=== PATIENT | male | born 1985 | race Caucasian/White ===

== ENCOUNTER 2017-05-27 10:24 | Observation (INO) | payer OTHER ==
--- NOTE | 2017-05-27 11:06 | EDPHY ---
H & P Stated Complaint: sent from [facility] with LtUpper Arm DVT Time Seen by Provider: 05/27/17 11:03 HPI/ROS: Chief complaint: Deep vein thrombosis left upper extremity History of present illness: This 31-year-old male with past medical history of borderline hypertension presents to emergency department today after having an ultrasound of his left upper extremity ordered by [facility] urgent care this morning. The patient has been having swelling and discomfort in his left upper extremity for the last week. Apparently the ultrasound showed a DVT and the urgent care advised him to go to the ER for further evaluation and treatment. The patient denies having injury to this extremity, he has not had any prior issues with blood clots. He denies chest pain, shortness of breath, fever or any other concerns. 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 He is right handed. He does not smoke. Upon review of family history he states his Aunt had a DVT and later in the ER stay after talking to family members he states his Aunt has Factor 5 Leiden deficiency. His mother had lung cancer as well as a pulmonary embolism, and his father had lung cancer. REVIEW OF SYSTEMS: Constitutional: No fever, no chills. Eyes: No discharge. ENT: No sore throat. Respiratory: No cough, no shortness of breath. Cardiac: No chest pain, no palpitations. Gastrointestinal: No abdominal pain, no vomiting. Genitourinary: No hematuria. Musculoskeletal: No back pain. Skin: No rashes. Neurological: No headache. Source: Patient Exam Limitations: No limitations - Personal History Current Tetanus Diphtheria and Acellular Pertussis (TDAP): Yes - Medical/Surgical History PMH: PMH: Borderline HTN PSH: Denied NKDA Meds: Denied No PCP. Has an appointment scheduled with a new provider, Dr. Narayan Ramires, tomorrow morning. 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 Constitutional: Initial Vital Signs Temperature (C) 98 F 05/27/17 10:57 Heart Rate 95 05/27/17 10:57 Respiratory Rate 18 05/27/17 10:57 Blood Pressure 157/112 H 05/27/17 10:57 O2 Sat (%) 97 05/27/17 10:57 O2 Delivery Mode Room Air Allergies/Adverse Reactions: No Known Allergies Allergy (Unverified 05/27/17 13:26) Home Medications: Medication Instructions Recorded NK [No Known Home Meds] 05/27/17 Medical Decision Making - Diagnostics Imaging Results: Imaging Impressions Chest/Thorax CTA 05/27/17 11:38 Impression: 1. Bilateral segmental and subsegmental pulmonary emboli. 2. Limited assessment of known left upper extremity DVT secondary to contrast injection via the right arm. 3. Narrowing of the central right subclavian vein. 4. Additional findings as above. Findings discussed with Marie Morris DO, 05/27/2017 at 13:14. Imaging: Discussed imaging studies w/ call centre supervisor Radiologist ED Course/Re-evaluation: The patient was seen and examined. Vital signs reviewed. I was able to contact [employer] in [facility] get a copy of the reading of the upper extremity venous duplex of the left upper extremity. This showed a left upper extremity thrombus in the left subclavian vein extending into the axillary vein. I attempted to contact the provider he is going to see tomorrow but he is not in the office today and did not answer pages. I discussed the patient with the hospitalist service, Sugey Shields NP, at [facility]. I have ordered the hypercoagulable lab panel and ordered a CT pulmonary angiogram. The CT pulmonary angiogram came back positive for segmental and subsegmental PEs bilaterally. The patient received Lovenox 1 milligram/kilogram subcutaneously. The patient was uncomfortable being discharged as was the original plan, and therefore was admitted to Med-Surg telemetry, observation at [facility]. Differential Diagnosis: Differential diagnosis includes but is not limited to pulmonary embolism, factor 5 Leiden deficiency, protein C protein or S deficiency, cancer (in addition to the known deep vein thrombosis of his left upper extremity). - Data Points Laboratory Results: Laboratory Results 05/27/17 11:45 05/27/17 11:45 05/27/17 05/27/17 05/27/17 12:00 12:00 11:45 WBC RBC Hgb Hct MCV MCH MCHC RDW Plt Count MPV Neut % (Auto) Lymph % (Auto) [place] % (Auto) Eos % (Auto) Baso % (Auto) Nucleat RBC Rel Count Absolute Neuts (auto) Absolute Lymphs (auto) Absolute Monos (auto) Absolute Eos (auto) Absolute Basos (auto) Absolute Nucleated RBC Immature Gran % Immature Gran # PT 13.9 SEC SEC (12.0-15.0) INR 1.08 (0.83-1.16) APTT 30.3 SEC SEC (23.0-38.0) Fibrinogen 280 mg/dL mg/dL (214-456) D-Dimer 10.47 ug/mLFEU H ug/mLFEU (0.00-0.50) Protein C Activity Pending Protein S Activity Pending Antithrombin III Activ Pending Factor V Leiden Mutat Pending Factor V Leiden Interp Pending Fact V Leiden Review By Pending Sodium 146 mEq/L H mEq/L (135-145) Potassium 4.2 mEq/L mEq/L (3.5-5.2) Chloride 104 mEq/L mEq/L (97-110) Carbon Dioxide 26 mEq/l mEq/l (22-31) Anion Gap 16 mEq/L mEq/L (8-16) BUN 15 mg/dL mg/dL (7-23) Creatinine 0.9 mg/dL mg/dL (0.7-1.3) Estimated GFR > 60 Glucose 91 mg/dL mg/dL (70-100) Calcium 10.1 mg/dL mg/dL (8.5-10.4) Total Bilirubin 0.6 mg/dL mg/dL (0.1-1.4) Conjugated Bilirubin 0.2 mg/dL mg/dL (0.0-0.5) Unconjugated Bilirubin 0.4 mg/dL mg/dL (0.0-1.1) AST 31 IU/L IU/L (17-59) ALT 47 IU/L IU/L (21-72) Alkaline Phosphatase 60 IU/L IU/L (38-126) Total Protein 8.0 g/dL g/dL (6.3-8.2) Albumin 4.7 g/dL g/dL (3.5-5.0) Anti-Cardiolipin IgG Ab Pending Anti-Cardiolipin IgM Ab Pending 05/27/17 11:45 WBC 5.94 10^3/uL 10^3/uL (3.80-9.50) RBC 5.49 10^6/uL 10^6/uL (4.40-6.38) Hgb 16.4 g/dL g/dL (13.7-17.5) Hct 46.9 % % (40.0-51.0) MCV 85.4 fL fL (81.5-99.8) MCH 29.9 pg pg (27.9-34.1) MCHC 35.0 g/dL g/dL (32.4-36.7) RDW 12.1 % % (11.5-15.2) Plt Count 186 10^3/uL 10^3/uL (150-400) MPV 9.2 fL fL (8.7-11.7) Neut % (Auto) 74.8 % H % (39.3-74.2) Lymph % (Auto) 17.7 % % (15.0-45.0) [place] % (Auto) 6.7 % % (4.5-13.0) Eos % (Auto) 0.2 % L % (0.6-7.6) Baso % (Auto) 0.3 % % (0.3-1.7) Nucleat RBC Rel Count 0.0 % % (0.0-0.2) Absolute Neuts (auto) 4.44 10^3/uL 10^3/uL (1.70-6.50) Absolute Lymphs (auto) 1.05 10^3/uL 10^3/uL (1.00-3.00) Absolute Monos (auto) 0.40 10^3/uL 10^3/uL (0.30-0.80) Absolute Eos (auto) 0.01 10^3/uL L 10^3/uL (0.03-0.40) Absolute Basos (auto) 0.02 10^3/uL 10^3/uL (0.02-0.10) Absolute Nucleated RBC 0.00 10^3/uL 10^3/uL (0-0.01) Immature Gran % 0.3 % % (0.0-1.1) Immature Gran # 0.02 10^3/uL 10^3/uL (0.00-0.10) PT INR APTT Fibrinogen D-Dimer Protein C Activity Protein S Activity Antithrombin III Activ Factor V Leiden Mutat Factor V Leiden Interp Fact V Leiden Review By Sodium Potassium Chloride Carbon Dioxide Anion Gap BUN Creatinine Estimated GFR Glucose Calcium Total Bilirubin Conjugated Bilirubin Unconjugated Bilirubin AST ALT Alkaline Phosphatase Total Protein Albumin Anti-Cardiolipin IgG Ab Anti-Cardiolipin IgM Ab Medications Given: Discontinued Medications Enoxaparin Sodium (Lovenox) 100 mg SC EDNOW ONE Stop: 05/27/17 13:21 Last Admin: 05/27/17 13:47 Dose: 100 mg Departure - Departure Disposition: Home, Routine, Self-Care
[2017-05-27 11:51] LABS: PLATELET COUNT 186 10^3/uL (150-400)
[2017-05-27] MEDS ORDERED: IOPAMIDOL (ISOVUE 370) 100 ML BTL IV ONE (11:55)
[2017-05-27 12:11] LABS: INR 1.08 (0.83-1.16); PROTIME(PATIENT) 13.9 SEC (12.0-15.0)
[2017-05-27] MEDS ORDERED: ENOXAPARIN 100 MG/ML SYR SC ONE (13:20)
[2017-05-27] MEDS ORDERED: ONDANSETRON 4 MG/2 ML VIAL IVP PRN (14:44)
[2017-05-27] MEDS ORDERED: ONDANSETRON DISINTEGRATING 4 MG TAB PO PRN (14:44)
[2017-05-27] MEDS ORDERED: ACETAMINOPHEN 325 MG TAB PO PRN (14:44)
[2017-05-27 15:31] VITALS: RESP 16; TEMP 98.6
[2017-05-27 16:04] VITALS: BP 148/97; PULSE 88; O2SAT 91
--- NOTE | 2017-05-27 18:03 | GHP ---
[f rep st] HISTORY AND PHYSICAL DATE OF ADMISSION: 05/27/2017 CHIEF COMPLAINT: Left upper extremity swelling. 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 Malaika ent describes a waxing and waning swelling that involved his hand, then his forearm, and ultimately h is upper arm. When the swelling remained persistent today, patient sought care for evaluation, was n oted to have a DVT, and was sent to the acute care clinic for evaluation. In the acute care clinic, they obtained CT chest imaging which confirmed bilateral subsegmental pulmonary emboli. Upon our anyi luation, patient denies any chest pain or history of preceding pleuritic chest pain. Patient denies any shortness of breath or any limitation to activity related to his breathing or his chest. Patient endorses now improving left upper extremity edema. Denies any numbness, tingling or pain in that ex tremity. Denies any lower extremity swelling preceding his presentation. Patient denies any GI symp toms. Denies any dysuria, hematuria, vision changes, headaches, or dysphagia. PAST MEDICAL HISTORY: None. SOCIAL HISTORY: Negative for tobacco. Daily alcohol. No illicit drugs or marijuana. FAMILY HISTORY: Patient reports discussing what was happening with his family today and learning dada t he has an aunt on his maternal side with factor V Leiden and that a grandma on his father's side morel d a pulmonary embolism. REVIEW OF SYSTEMS: A 10-point review of systems is negative with the exception of that reported in t he HPI. PHYSICAL EXAMINATION: VITAL SIGNS: Blood pressure 148/98, heart rate 88, respiratory rate 16, satur ating 96% on room air, 37.0. GENERAL: This is a healthy-appearing young male in no acute distress. HEENT: Notable for moist mucous membranes. Eye exam is negative for any icterus. CARDIAC: Makenna t is regular rate and rhythm. No murmurs, gallops, or rubs. PULMONARY: Patient has good respirator y effort, is clear to auscultation bilaterally. GASTROINTESTINAL: Positive bowel sounds. ABDOMEN: Soft and nontender in all 4 quadrants. MUSCULOSKELETAL: Negative for any lower extremity edema. Th e left upper extremity has trace edema. No pitting is appreciated. Pulses are normal. Sensation is intact, and color is normal. SKIN: Negative for any rashes. PSYCHIATRIC: Patient is pleasant and cooperative on interview and examination. DATA: White count 5.9. D-dimer 10.4. Sodium 146. Creatinine 0.9. CTA of the chest, which I tasia beavers reviewed and interpreted, shows bilateral subsegmental pulmonary emboli. ASSESSMENT AND PLAN: This is a 31-year-old male presenting with left upper extremity swelling. 1. Acute subsegmental pulmonary emboli: Suspect based on the patient's newly found family history, patient may have an underlying genetic predisposition for clotting. After extended discussion about anticoagulation, patient has opted to initiate a novel anticoagulant. He was treated with full-dose Lovenox by the emergency department. We have provided a script for 1 month of Eliquis including a 10 dollar co-pay card. He has been instructed to discuss the [facility] of novel [facility] and his primary care prior to the cessation of that script, so that if he needs to switch to Couma din for financial reasons, it can be done so safely before he runs out of the medication. We have ad ditionally recommended that the patient seek hematology oncology consultation in the next 1-2 months after the acute clotting incident so he can have the appropriate workup for any underlying hypercoagu lable state. 2. Prophylaxis: Patient is on full-dose anticoagulation. 3. Diet: Regular. 4. Disposition: This evening as the patient is stable and comfortable returning home. /[id number]/MODL
--- NOTE | 2017-05-27 22:59 | GDS ---
[f rep st] DISCHARGE SUMMARY DISCHARGE DIAGNOSES: Include: 1. Acute bilateral pulmonary emboli. 2. Acute left upper extremity deep vein thrombosis. 3. Suspected hypercoagulable state. HISTORY OF PRESENT ILLNESS: This is a 31-year-old male, with no known history of hypercoagulability, who presents with acute left upper extremity swelling. For details of the patient's initial present ation, please see the history and physical dated 05/27/2017. PROCEDURES: On May 27, patient had a CTA of the chest that confirms bilateral subsegmental pulmo nary emboli. HOSPITAL COURSE: Acute pulmonary emboli. Patient's PESI score is 43. He was treated with Lovenox f rom the acute care clinic. After discussion with the patient, he has opted for a novel anticoagulant . Patient has been provided with a script as well as a 10 dollar co-pay card for Eliquis, with the r ecommendations to follow with his PCP in the next 1-2 weeks for discussion about ongoing anticoagulat ion and coordination with his insurance provider, as well as consultation with outpatient Hematology Oncology to discuss the likely hypercoagulable state as he has family members with known factor V Lei den. Patient's vital signs are entirely normal. He is without symptoms of shortness of breath or ch est pain and is stable and safe for discharge home. MEDICATIONS AT THE TIME OF DISPOSITION: Please reference med rec printed on 05/27/2017. FOLLOWUP APPOINTMENTS: Include with his PCP as well as Hematology Oncology. PENDING STUDIES: At the time of this dictation include hypercoagulable laboratories ordered by the [facility]. These can be followed in the outpatient setting by Hematology Oncology when they evaluate him in 1-2 months. /[id number]/MODL
== END 2017-05-27 18:20 | disposition home or self-care (01) ==
LOC: CED 10:24 → CEDHOLD 13:17 → F3E 15:04
PROVIDERS: ADMIT Hospitalist; ATTEND Hospitalist
DX: I26.99 Other pulmonary embolism without acute cor pulmonale (principal); I82.622 Acute embolism and thrombosis of deep veins of left upper extremity; I10 Essential (primary) hypertension; Z80.1 Family history of malignant neoplasm of trachea, bronchus and lung
CPT/HCPCS: 71275; G0378; 80048-PO; 80076-PO; 85025-PO; 85300-90; 85303-90; 85306-90; 85378-PO; 85610-PO; 85730-PO; 86147-90; J1650; Q9967

== ENCOUNTER 2018-05-30 22:04 | Emergency (ER) | payer OTHER ==
[2018-05-30] MEDS ORDERED: ASPIRIN 81 MG CHEWABLE TAB PO ONE (22:17)
[2018-05-30] MEDS ORDERED: NS 1,000 ML IV ONE (22:27)
--- NOTE | 2018-05-30 22:32 | EDPHY ---
H & P Stated Complaint: c/o sudden LT CP/SOB @ 2054- HX of DVT/PE Source: Patient Exam Limitations: No limitations - Personal History Current Tetanus Diphtheria and Acellular Pertussis (TDAP): Yes - Medical/Surgical History Hx Asthma: No Hx Chronic Respiratory Disease: No Hx Diabetes: No Hx Cardiac Disease: No Hx Renal Disease: No Hx Cirrhosis: No Hx Alcoholism: No Hx HIV/AIDS: No Hx Splenectomy or Spleen Trauma: No Other PMH: denies/ DVT/PE May 2017 - Family History Significant Family History: No pertinent family hx - Social History Smoking Status: Never smoked Alcohol Use: Occasionally Drug Use: None Time Seen by Provider: 05/30/18 22:14 HPI/ROS: This patient describes abrupt onset of right-sided chest pain initially sharp in nature just to the right of the sternum 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 Incident occurred at 8:55 p.m. And he reports associated dyspnea. He also had fleeting lightheadedness that has since resolved. He reports that the pain was initially moderate but is now diminish to mild 1/10 intensity. However it is somewhat pleuritic in that it becomes more prominent with a deep breath. He describes a currently is being more tightness then sharp pain. He felt well prior to the onset of symptoms. He did however notice some left calf discomfort last week. That has since resolved. He drove himself here by private vehicle for evaluation of the symptoms. His history is notable for a prior upper extremity DVT and bilateral PEs in April 2012 with negative lab workup for Rubin double hypercoagulability disorders. He is not currently on a blood thinner. ROS: Constitutional: No recent fevers or chills. No generalized weakness. HEENT: No URI symptoms or other complaints pulmonary: No cough. No hemoptysis Cardiovascular: Hasn't noticed lower extremity swelling. GI: No symptoms Integumentary: No skin rash. No diaphoresis. Neuro: No focal numbness tingling weakness Musculoskeletal: No recent trauma to the chest. 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 (Nakul Soto) - Physical Exam Exam: General Appearance: Alert, no distress. Eyes: Pupils equal and round no pallor or injection. ENT, Mouth: Mucous membranes moist. Respiratory: There are no retractions, lungs are clear to auscultation. Patient does have mild anterior chest wall tenderness but he does not think this entirely reproduces his symptoms. Cardiovascular: Regular rate and rhythm. No murmur gallop rub. No peripheral edema. Currently no calf swelling or tenderness. Gastrointestinal: Abdomen is soft and nontender, no masses, bowel sounds normal. Neurological: GCS 15. Skin: Warm and dry, no rashes. Musculoskeletal: Neck is supple nontender. Extremities are symmetrical, full range of motion. Psychiatric: Mood and affect are normal DIFFERENTIAL DIAGNOSIS: After history and physical exam differential diagnosis was considered for pulmonary embolism, muscle strain, costochondritis, GERD with esophageal spasm, anxiety, pneumothorax, pneumonia, (Nakul Soto) Constitutional: Initial Vital Signs Temperature (C) 36.1 C 05/30/18 22:14 Heart Rate 90 05/30/18 22:14 Respiratory Rate 20 05/30/18 22:14 Blood Pressure 140/100 H 05/30/18 22:14 O2 Sat (%) 100 05/30/18 22:14 O2 Delivery Mode Room Air Allergies/Adverse Reactions: No Known Allergies Allergy (Unverified 05/27/17 13:26) Medical Decision Making - Diagnostics Imaging Results: Imaging Impressions Chest/Thorax CTA 05/30/18 22:27 Impression: 1. No evidence of pulmonary embolus using CT protocol. 2. Normal CT chest. Findings discussed with Dr. Castro, at 23:23 hour, 05/30/2018. ED Course/Re-evaluation: IV, monitor Aspirin 324 chewed Given prior history of PE, will proceed with CT angio chest for further evaluation of this patient with pleuritic chest pain. I discussed this case with Dr. James at 11:[address] angio chest results pending. CBC is also pending. His POC basic metabolic panel and troponin are normal. 11:00 p.m. the patient is stable and he declines analgesics for his mild discomfort at this time (Nakul Soto) Other Provider: ct scan negative for pe pts pain improved discharged home (Nikole Castro) - Data Points Laboratory Results: Laboratory Results 05/30/18:20 05/30/18 05/30/18 05/30/18 22:28 22:27 22:20 WBC 6.29 10^3/uL 10^3/uL (3.80-9.50) RBC 5.46 10^6/uL 10^6/uL (4.40-6.38) Hgb 16.5 g/dL g/dL (13.7-17.5) Hct 47.7 % % (40.0-51.0) MCV 87.4 fL fL (81.5-99.8) MCH 30.2 pg pg (27.9-34.1) MCHC 34.6 g/dL g/dL (32.4-36.7) RDW 12.6 % % (11.5-15.2) Plt Count 252 10^3/uL 10^3/uL (150-400) MPV 9.4 fL fL (8.7-11.7) Neut % (Auto) 47.4 % % (39.3-74.2) Lymph % (Auto) 41.2 % % (15.0-45.0) [place] % (Auto) 9.2 % % (4.5-13.0) Eos % (Auto) 1.4 % % (0.6-7.6) Baso % (Auto) 0.5 % % (0.3-1.7) Nucleat RBC Rel Count 0.0 % % (0.0-0.2) Absolute Neuts (auto) 2.98 10^3/uL 10^3/uL (1.70-6.50) Absolute Lymphs (auto) 2.59 10^3/uL 10^3/uL (1.00-3.00) Absolute Monos (auto) 0.58 10^3/uL 10^3/uL (0.30-0.80) Absolute Eos (auto) 0.09 10^3/uL 10^3/uL (0.03-0.40) Absolute Basos (auto) 0.03 10^3/uL 10^3/uL (0.02-0.10) Absolute Nucleated RBC 0.00 10^3/uL 10^3/uL (0-0.01) Immature Gran % 0.3 % % (0.0-1.1) Immature Gran # 0.02 10^3/uL 10^3/uL (0.00-0.10) POC Sodium 140 mEq/L mEq/L (135-145) POC Potassium 4.2 mEq/L mEq/L (3.3-5.0) POC Chloride 109.0 mEq/L mEq/L (97-110) POC Total CO2 29 mEq/L mEq/L (22-31) POC BUN 18 mg/dL mg/dL (7-23) POC Creatinine 1.1 mg/dL mg/dL (0.7-1.3) POC Glucose 90 mg/dL mg/dL (70-100) POC Calcium 10.0 mg/dL mg/dL (8.5-10.4) POC Troponin I 0.01 ng/mL ng/mL (0.00-0.08) Medications Given: Discontinued Medications Aspirin (Aspirin) 324 mg PO EDNOW ONE Stop: 05/30/18 22:18 Last Admin: 05/30/18 22:25 Dose: 324 mg Sodium Chloride (Ns) 1,000 mls @ 0 mls/hr IV ONCE ONE; Wide Open PRN Reason: Protocol Stop: 05/30/18 22:28 Last Admin: 05/30/18 22:31 Dose: 1,000 mls Point of Care Test Results: Chemistry 05/30/18 05/30/18 22:28 22:27 POC Sodium 140 mEq/L mEq/L (135-145) POC Potassium 4.2 mEq/L mEq/L (3.3-5.0) POC Chloride 109.0 mEq/L mEq/L (97-110) POC Total CO2 29 mEq/L mEq/L (22-31) POC BUN 18 mg/dL mg/dL (7-23) POC Creatinine 1.1 mg/dL mg/dL (0.7-1.3) POC Glucose 90 mg/dL mg/dL (70-100) POC Calcium 10.0 mg/dL mg/dL (8.5-10.4) POC Troponin I 0.01 ng/mL ng/mL (0.00-0.08) Departure - Departure Disposition: Home, Routine, Self-Care Clinical Impression: Chest pain Condition: Good Instructions: Chest Pain (ED) Referrals: Patient,NotPresent [Primary Care Provider] - As per Instructions [facility] [Provider Group] - As per Instructions
[2018-05-30] MEDS ORDERED: IOPAMIDOL (ISOVUE 370) 100 ML BTL IV ONE (22:44)
[2018-05-30 23:31] LABS: PLATELET COUNT 252 10^3/uL (150-400)
[2018-05-30 23:45] VITALS: BP 123/78
--- NOTE | 2018-05-31 19:11 | CPEKG ---
Test Reason : OPEN Blood Pressure : / mmHG Vent. Rate : 085 BPM Atrial Rate : 079 BPM P-R Int : 139 ms QRS Dur : 099 ms QT Int : 380 ms P-R-T Axes : 056 035 029 degrees QTc Int : 452 ms Sinus rhythm Confirmed by Nakul Soto ([id number]) on 05/31/2018 7:10:34 PM Referred By: Confirmed By:Nakul Soto
== END 2018-05-30 23:35 | disposition home or self-care (01) ==
LOC: CED 22:04
DX: R07.9 Chest pain, unspecified (principal); R06.00 Dyspnea, unspecified; E86.9 Volume depletion, unspecified
CPT/HCPCS: 71275-PO; 80048-ER; 84484-ER; Q9967